=== PATIENT | male | born 1980 | race Caucasian/White ===

== ENCOUNTER 2023-04-29 10:17 | Emergency (ER) | payer MEDICAID ==
[~2023-04-29] VITALS: Ht 167.6 cm; Wt 77.3 kg
[2023-04-29 10:22] VITALS: TEMP 97.8
[2023-04-29] MEDS ORDERED: SODIUM CHLORIDE 0.9% 250 ML IRRIG SOLUTION BOTTLE IRRIG ONE (10:45)
[2023-04-29] MEDS ORDERED: ONDANSETRON HCL 4 MG/2 ML VIAL IM ONE (10:45)
[2023-04-29] MEDS ORDERED: PERTUSS(ACELL),DIPH,TET VAC/PF 0.5 ML SYRINGE IM. ONE (10:45)
[2023-04-29] MEDS ORDERED: MORPHINE SULFATE 4 MG/ML SYRINGE IM ONE (10:45)
[2023-04-29] MEDS ORDERED: CEPH-558 PO (14:23)
[2023-04-29] MEDS ORDERED: TRAM-559 PO (14:23)
[2023-04-29 15:13] VITALS: BP 126/70; PULSE 70; RESP 16
== END 2023-04-29 15:12 | disposition home or self-care (01) ==
LOC: EMS 10:24
DX: S68.112A Complete traumatic metacarpophalangeal amputation of right middle finger, initial encounter (principal); W23.0XXA Caught, crushed, jammed, or pinched between moving objects, initial encounter; Y93.89 Activity, other specified; Y92.89 Other specified places as the place of occurrence of the external cause; Y99.8 Other external cause status
CPT/HCPCS: 99284; 73130; 90715; 90471; 96372; J0690; J2270; J2405